=== PATIENT | male | born 1965 | race American Indian/Alaskan Native ===

== ENCOUNTER 2018-03-19 06:11 | Day surgery (SDC) | payer OTHER ==
[2018-03-19] MEDS ORDERED: Lactated Ringer's 1,000 ML IV ONE (08:13)
[2018-03-19] MEDS ORDERED: Propofol 10 mg/ml Inj (20 ML) ONE ×2 (08:32→08:51)
--- NOTE | 2018-03-19 08:37 | CP.SDSHP ---
Same Day Surgery H & P - History Proposed Procedure: colonoscopy Pre-Op Diagnosis: change in bowel habits - Previous Medical/Surgical History Comments: none Previous Surgical History: none - Allergies Allergies: Allergies No Known Allergies Allergy (Verified 03/19/18 06:40) - Current Medications Current Medications: none - Physical Exam General Appearance: wdwn nad Vital Signs: Vital Signs 03/19/18 03/19/18 06:39 07:58 Temperature 97 F L 97 F L Pulse Rate 66 66 Respiratory 19 19 Rate Blood Pressure 147/87 147/87 O2 Sat by Pulse 99 99 Oximetry Mental Status: Alert & Oriented x3 Heart: WNL Lungs: WNL GI: WNL - {Optional Preform as Required} Abdomen: WNL - Impression Impression: change in bowel habits Pt. Evaluated Today:Candidate for Anesthesia & Procedure: Yes - Date & Time Date: 03/19/18 Time: 08:37 Short Stay Discharge - Short Stay Discharge Admitting Diagnosis/Reason for Visit: CHANGE IN BOWEL HABIT Disposition: HOME/ ROUTINE Referrals: Irma Alfaro MD [Primary Care Provider] -
[2018-03-19] MEDS ORDERED: Atropine 0.4 mg/ml Inj (1 mL) ONE (08:43)
[2018-03-19 09:23] VITALS: O2SAT 100
[2018-03-19 09:48] VITALS: TEMP 97
[2018-03-19 10:23] VITALS: BP 119/83; PULSE 64; RESP 17
== END 2018-03-19 10:15 | disposition home or self-care (01) ==
LOC: C.ENDO 06:11
PROVIDERS: ATTEND Internal Medicine Gastroenterology
DX: D12.8 Benign neoplasm of rectum (principal); D12.2 Benign neoplasm of ascending colon; D12.3 Benign neoplasm of transverse colon; K64.8 Other hemorrhoids; K57.30 Diverticulosis of large intestine without perforation or abscess without bleeding
CPT/HCPCS: 45380; 45385; 88305; J0461; J2001; J2704; J7120